=== PATIENT | female | born 1955 ===

== ENCOUNTER → 2020-09-15 12:26 | Outpatient (CLI) | payer OTHER, SELFPAY ==
[2020-09-15] MEDS: COVID-19 VACC #1, MRNA(MOD) 100 MCG/0.5 ML VIAL IM (12:33)
== END ==
PROVIDERS: Visit Provider Internal Medicine
DX: Z23 Encounter for immunization (principal)
CPT/HCPCS: 0011A; 91301

== ENCOUNTER → 2020-10-13 09:49 | Outpatient (CLI) | payer OTHER, MEDICAID, SELFPAY ==
[2020-10-13] MEDS: COVID-19 VACC #2, MRNA(MOD) 100 MCG/0.5 ML VIAL IM (09:55)
== END ==
PROVIDERS: Visit Provider Internal Medicine
DX: Z23 Encounter for immunization (principal)
CPT/HCPCS: 0012A; 91301